=== PATIENT | male | born 1935 | race Caucasian/White ===

== ENCOUNTER → 2020-04-03 11:35 | Outpatient (BNVA) | payer MEDICARE, OTHER, SELFPAY | PROVIDERS: Family Provider Family Medicine; PCP Family Medicine; Visit Provider Family Medicine | DX: I10 Essential (primary) hypertension (principal); E78.5 Hyperlipidemia, unspecified | CPT/HCPCS: 80053; 80061; 82043; 85025 ==

== ENCOUNTER → 2022-04-23 14:00 | Outpatient (BNVA) | payer MEDICARE, SELFPAY | PROVIDERS: Family Provider Family Medicine; PCP Family Medicine; Visit Provider Emergency Medicine | DX: G89.29 Other chronic pain (principal); M25.552 Pain in left hip | CPT/HCPCS: 72100; 73502 ==

== ENCOUNTER → 2025-02-09 10:46 | Outpatient (BNVA) | payer OTHER, SELFPAY | PROVIDERS: Visit Provider Orthopaedic Surgery | DX: M25.551 Pain in right hip (principal); M25.552 Pain in left hip | CPT/HCPCS: 73523; 99204 ==

== ENCOUNTER 2025-02-16 05:00 | Outpatient (RCR) | payer OTHER, SELFPAY | END 2025-03-18 23:59 | disposition home or self-care (01) | LOC: MPT 05:00 | PROVIDERS: Visit Provider Orthopaedic Surgery | DX: M71.552 Other bursitis, not elsewhere classified, left hip (principal) | CPT/HCPCS: 97162 ==